=== PATIENT | male | born 1955 | race Caucasian/White ===

== ENCOUNTER → 2016-08-31 | Outpatient (CLI) | payer OTHER ==
[~2016-08-31] MED LIST: AMOX1TAB67 PO; NATE120T12 PO; PANT40TA3 PO
[2016-08-31 09:01] LABS: AADO2 Arterial 13.3 mmHg (7.0-24.0); Allen Test ACCEPTAB; Arterial Base Excess 2.1 mmol/L (-3.0-3); Arterial COHb 0.5 % (0.0-3.0); Arterial Fraction of Oxyhgb 96.4 % (93.0-99.0); Arterial HCO3 25.4 mmol/L (22.0-26.0); Arterial MetHb 0.3 % (0.0-1.5); Arterial Total Hemglobin 14.9 g/dl (12.0-18.0); MODE ROOM AIR
== END | disposition home or self-care (01) ==
LOC: PUL 08:42
PROVIDERS: ATTEND Internal Medicine
DX: K74.60 Unspecified cirrhosis of liver (principal)
CPT/HCPCS: 36600; 82803

== ENCOUNTER → 2016-09-23 | Outpatient (CLI) | payer OTHER | END | disposition home or self-care (01) | LOC: NUC 09:41 | PROVIDERS: ATTEND Nurse Practitioner Family | DX: Z76.82 Awaiting organ transplant status (principal) ==

== ENCOUNTER → 2016-09-25 | Outpatient (CLI) | payer OTHER ==
--- NOTE | 2016-09-25 13:11 | RADRPT ---
PROCEDURE: Whole body bone scan study CLINICAL INDICATION: 61 -year-old patient with bony pain. TECHNIQUE: Following the intravenous injection of 24.9 mCi of Tc-99m MDP, whole body anterior and posterior planar images were obtained along with spot views of the chest. COMPARISON: The patient does not have any prior relevant imaging studies. FINDINGS: Mildly heterogeneous distribution of activity seen throughout the spine. Mildly increased uptake is seen in both knees. No other definite abnormal areas of increased activity or asymmetries are visualized in the study an d distribution of radionuclide is homogeneous in the skull, spine, rib cages, sternum, pelvis and vi sualized portions of the upper and lower extremities. Of incidental note, there is no evidence of mass abnormalities of the kidneys. IMPRESSION: 1. Likely degenerative changes of the spine and both knees. 2. No other definite skeletal abnormalities. RPTAT: HH .Keisha Beaver MD, Date Time Electronically viewed and signed by .Keisha Beaver MD, on 09/25/2016 13:10 .L/
== END | disposition home or self-care (01) ==
LOC: NUC 09:33
PROVIDERS: ATTEND Nurse Practitioner Family
DX: Z76.82 Awaiting organ transplant status (principal)
CPT/HCPCS: 78306; A9503

== ENCOUNTER 2017-01-25 10:00 | Emergency (ER) | payer MEDICAID, OTHER ==
[~2017-01-25] VITALS: Ht 175.3 cm; Wt 85.9 kg
[2017-01-25 10:09] VITALS: Ht 175.3 cm; Wt 85.9 kg
[2017-01-25] MEDS ORDERED: CEPHALEXIN 500 MG CAP PO ONE (11:00)
[2017-01-25] MEDS ORDERED: ACETAMINOPHEN 325 MG TAB PO ONE (11:00)
[2017-01-25] MEDS ORDERED: LIDOCAINE 1% (MDV) 20 ML INJ SC ONE (11:00)
[2017-01-25] MEDS ORDERED: TRIMETHOPRIM/SULFAMETHOX (DS) TAB PO ONE (11:00)
[2017-01-25] MEDS ORDERED: CEPH-443 PO (11:25)
[2017-01-25] MEDS ORDERED: ACET1TAB40 PO (11:25)
[2017-01-25] MEDS ORDERED: SULF1TAB31 PO (11:25)
--- NOTE | 2017-01-25 11:28 | ERD ---
ER Documentation Chief Complaint Chief Complaint right leg abscess x 8 days HPI 62-year-old male presents with some pain swelling redness on the right inner thigh for last 8 days. Denies current fever or vomiting. He feels like he had a fever 2 days ago but no fever triage. Denies any history of trauma or inciting events. ROS All systems reviewed and are negative except as per history of present illness. Medications Home Meds Active Scripts Acetaminophen with Codeine (Acetaminophen-Cod #3 Tablet) 1 Each Tablet, 1 TAB PO Q6H Y for PAIN, #10 TAB Prov:ORIANA VILLANUEVA MD 01/25/17 Cephalexin* (Keflex*) 500 Mg Capsule, 500 MG PO QID for 7 Days, CAP Prov:ORIANA VILLANUEVA MD 01/25/17 Sulfamethoxazole/Trimethoprim* (Bactrim Ds* Tablet) 1 Each Tablet, 1 TAB PO BID , #14 TAB Prov:ORIANA VILLANUEVA MD 01/25/17 Nateglinide* (Starlix*) 120 Mg Tablet, 120 MG PO AC MEALS for 28 Days, TAB Prov:RAE PAREDES MD 01/31/15 Pantoprazole* (Protonix*) 40 Mg Tablet.dr, 40 MG PO DAILY for 28 Days, TAB Prov:RAE PAREDES MD 01/31/15 Amoxicillin-Clavulanate K* (Augmentin*) 500 Mg Tab, 500 MG PO BID for 7 Days, TAB Prov:RAE PAREDES MD 01/31/15 Allergies Allergies: Coded Allergies: No Known Allergy (Unverified , 01/28/15) PMhx/Soc History of Surgery: Yes (appendectomy) Anesthesia Reaction: No Hx Neurological Disorder: No Hx Respiratory Disorders: No Hx Cardiac Disorders: No Hx Psychiatric Problems: No Hx Miscellaneous Medical Probl: No Hx Alcohol Use: No Hx Substance Use: No Hx Tobacco Use: No Physical Exam Vitals Vital Signs Date Time Temp Pulse Resp B/P Pulse Ox O2 Delivery O2 Flow Rate FiO2 01/25/17 10:09 98.0 96 18 119/58 98 Physical Exam Const: [] Alert, [id number]. Head: Atraumatic Eyes: Normal Conjunctiva ENT: Normal External Ears, Nose and Mouth. Neck: Full range of motion..~ No meningismus. Resp: Clear to auscultation bilaterally Cardio: Regular rate and rhythm, no murmurs Abd: Soft, non tender, non distended. Normal bowel sounds Skin: No petechiae or rashes. There is approximately 3 cm area of erythema, fluctuance and pointing pustule on the right inner thigh. There is no significant induration Back: No midline or flank tenderness Ext: No cyanosis, or edema Neur: Awake and alert Psych: Normal Mood and Affect Results 24 hrs Current Medications Medications (Trade) Dose Ordered Sig/Kofi Route PRN Reason Start Time Stop Time Status Last Admin Dose Admin Acetaminophen (Tylenol Tab) 650 mg ONCE ONCE PO 01/25/17 11:00 01/25/17 11:01 DC 01/25/17 10:59 Trimethoprim/ Sulfamethoxazole (Bactrim (Ds)) 1 tab ONCE ONCE PO 01/25/17 11:00 01/25/17 11:01 DC 01/25/17 10:59 Cephalexin (Keflex) 500 mg ONCE ONCE PO 01/25/17 11:00 01/25/17 11:01 DC 01/25/17 10:59 Lidocaine (Xylocaine 1% (Mdv) 20 ml) 20 ml ONCE ONCE SC 01/25/17 11:00 01/25/17 11:01 DC Procedures/MDM She presents with signs of an abscess in the right inner thigh without signs or symptoms of necrotizing fasciitis, sepsis. Procedure note-right inner thigh was prepped with Betadine. 4 cc of lidocaine was used for local nutrition. #11 scalpel was used to incise the wound. Pus was expressed and loculations were broken up with a probe. Wound was packed with approximately 5-6 cm of quarter-inch gauze and wound was dressed and patient tolerated procedure well. Is given Bactrim and Keflex and Tylenol here in the ED and will treated with Bactrim and Keflex, Tylenol with written instructions for 2-3 day wound check, otherwise sooner for worsening redness, fevers, new worsening symptoms. Departure Diagnosis: Primary Impression: Abscess Condition: Stable Patient Instructions: Abscess, Incision And Drainage Additional Instructions: Recheck in 2-3 days for gauze removal. Recheck sooner for worsening redness, fevers, new symptoms. ORIANA VILLANUEVA MD Jan 25, 2017 11:28
== END 2017-01-25 11:57 | disposition home or self-care (01) ==
LOC: FTE 10:00
DX: L02.415 Cutaneous abscess of right lower limb (principal)
CPT/HCPCS: 10061; Z7502; Z7610

== ENCOUNTER 2017-01-27 08:58 | Emergency (ER) | payer MEDICAID ==
[~2017-01-27] VITALS: Wt 86.5 kg
[~2017-01-27 08:58] MED LIST changes: +ACET1TAB40 PO; +CEPH-443 PO; +SULF1TAB31 PO
--- NOTE | 2017-01-27 11:23 | ERD ---
ER Documentation Chief Complaint Chief Complaint s/p I&D RIGHT GROIN WOUND CHECK HPI 62-year-old male, returns to the emergency department for wound check and repacking of an abscess on the right thigh drained 2 days ago. The patient refers feeling much better, pain controlled, no fever, or chills. Good adherence to antibiotics, no side effects. ROS All systems reviewed and are negative except as per history of present illness. Medications Home Meds Active Scripts Acetaminophen with Codeine (Acetaminophen-Cod #3 Tablet) 1 Each Tablet, 1 TAB PO Q6H Y for PAIN, #10 TAB Prov:ORIANA VILLANUEVA MD 01/25/17 Cephalexin* (Keflex*) 500 Mg Capsule, 500 MG PO QID for 7 Days, CAP Prov:ORIANA VILLANUEVA MD 01/25/17 Sulfamethoxazole/Trimethoprim* (Bactrim Ds* Tablet) 1 Each Tablet, 1 TAB PO BID , #14 TAB Prov:ORIANA VILLANUEVA MD 01/25/17 Nateglinide* (Starlix*) 120 Mg Tablet, 120 MG PO AC MEALS for 28 Days, TAB Prov:RAE PAREDES MD 01/31/15 Pantoprazole* (Protonix*) 40 Mg Tablet.dr, 40 MG PO DAILY for 28 Days, TAB Prov:RAE PAREDES MD 01/31/15 Amoxicillin-Clavulanate K* (Augmentin*) 500 Mg Tab, 500 MG PO BID for 7 Days, TAB Prov:RAE PAREDES MD 01/31/15 Allergies Allergies: Coded Allergies: No Known Allergy (Unverified , 01/27/17) PMhx/Soc History of Surgery: Yes (appendectomy) Anesthesia Reaction: No Hx Neurological Disorder: No Hx Respiratory Disorders: No Hx Cardiac Disorders: No Hx Psychiatric Problems: No Hx Miscellaneous Medical Probl: No Hx Alcohol Use: No Hx Substance Use: No Hx Tobacco Use: No Smoking Status: Never smoker Physical Exam Vitals Vital Signs Date Time Temp Pulse Resp B/P Pulse Ox O2 Delivery O2 Flow Rate FiO2 01/27/17 09:05 98.1 81 20 117/70 99 Physical Exam Const: Alert, awake in no distress, vital signs reviewed all within normal limits Head: Atraumatic Eyes: Normal Conjunctiva ENT: Normal External Ears, Nose and Mouth. Neck: Full range of motion..~ No meningismus. Resp: Clear to auscultation bilaterally Cardio: Regular rate and rhythm, no murmurs Abd: Soft, non tender, non distended. Normal bowel sounds Skin: Right thigh: Posterior side: Wound clean, dry and intact with mild surrounding induration, no active purulent drainage, packing change Procedures/MDM 62-year-old male, returns for wound recheck and abscess repacking, currently the patient is doing well, skin infection is improving. Good adherence to antibiotics. Low suspicion for worsening of cellulitis/abscess, much less sepsis or systemic infection. Wound was clean, irrigated, repacked without complications. The patient was recommended to return in 48 hours or follow-up with his primary physician. The patient is stable to be discharged home with recommendations. Departure Diagnosis: Primary Impression: Skin abscess Additional Impression: Abscess re-check Condition: Stable Additional Instructions: Muchas emily por [facility] para younger servicio. Esperamos que en younger visita a la torito de emergencia younger problema medico haya sido solucionado y que se sienta mucho mejor. Para estar seguros que younger mejoria sigue en proceso, le pedimos el favor de hacer eve alisha de seguimiento medico con younger doctor primario en los proximos 2-4 cotter. Lleve con usted estos documentos y las medicinas recetadas. Si natalia sintomas empeoran y no puede olga a younger doctor, por favor regrese a torito de emergencia. En farrah que usted no tenga un mdico de atencin primaria: Llame al mdico o clnica comunitaria de referencia que aparece abajo moy las horas de consultorio para hacer eve alisha para que le vean. CLINICAS: [facility] [phone] [id number] [phone] [facility] [phone] [facility] [phone] [id number] [facility]. [facility] [phone] [id number] [facility] [phone] DANNY RODGERS MD Jan 27, 2017 11:23
== END 2017-01-27 11:39 | disposition home or self-care (01) ==
LOC: FTE 08:58
DX: L02.416 Cutaneous abscess of left lower limb (principal); Z48.01 Encounter for change or removal of surgical wound dressing
CPT/HCPCS: 99281